=== PATIENT | male | born 1940 | race Caucasian/White ===

== ENCOUNTER → 2017-09-22 | Outpatient (REF) | payer MEDICARE ==
[~2017-09-22] MED LIST: ASPI81TA85 PO; CLOP75TA2 PO; LISI-538 PO; METO1TAB32 PO; OMEP40CA2 PO; SIMV40TA2 PO
[2017-09-22 19:03] LABS: FOLATE 18.2 NG/ML
== END ==
LOC: M LAB REF 17:25
PROVIDERS: ATTEND Internal Medicine
DX: M79.1 Myalgia (principal)

== ENCOUNTER → 2020-04-13 | Outpatient (REF) | payer MEDICARE ==
[~2020-04-13] MED LIST changes: -ASPI81TA85 PO; +ASPI81TA86 PO; +ATOR40TA75 PO; +LIPI20TA PO; -OMEP40CA2 PO; +OMEP40CA97 PO; -SIMV40TA2 PO; +SIMV40TA20 PO
[2020-04-13 13:35] LABS: TOTAL PROTEIN 7.7 GM/DL (6.4-8.2)
[2020-04-13 13:46] LABS: VITAMIN B12 LEVEL 549 PG/ML
[2020-04-13 13:47] LABS: FOLATE > 24.0 NG/ML
[2020-04-17 16:06] LABS: CERULOPLASMIN 23.3 mg/dL (16.0-31.0); VITAMIN B1 LEVEL WHOLE BLOOD 168.6 nmol/L (66.5-200.0); VITAMIN B6,PYRIDOXAL PHOSPHATE 17.1 ug/L (5.3-46.7); VITAMIN E(ALPHA TOCOPHEROL) 13.5 mg/L (9.0-29.0); VITAMIN E(GAMMA TOCOPHEROL) 2.6 mg/L (0.5-4.9)
[2020-04-18 16:27] LABS: ALBUMIN 4.52 GM/DL (3.29-5.55); ALBUMIN % 58.7 % (55.8-66.1); ALPHA-1-GLOBULINS 0.31 GM/DL (0.17-0.41); ALPHA-2-GLOBULINS 0.82 GM/DL (0.42-0.99); ALPHA-2-GLOBULINS % 10.6 % (7.1-11.8); BETA-1-GLOBULINS 0.52 GM/DL (0.28-0.60); BETA-1-GLOBULINS % 6.7 % (4.7-7.2); BETA-2-GLOBULINS 0.45 GM/DL (0.19-0.55); BETA-2-GLOBULINS % 5.9 % (3.2-6.5); GAMMA GLOBULIN % 14.1 % (11.1-18.8); GAMMA GLOBULINS 1.09 GM/DL (0.65-1.58)
== END ==
LOC: M LAB REF 11:58
PROVIDERS: ATTEND Internal Medicine
DX: E83.01 Wilson's disease (principal); D51.9 Vitamin B12 deficiency anemia, unspecified

== ENCOUNTER → 2020-09-08 | Outpatient (CLI) | payer SELFPAY | LOC: M LABSMTC 11:53 | PROVIDERS: ATTEND Pediatrics | DX: Z20.828 Contact with and (suspected) exposure to other viral communicable diseases (principal) ==

== ENCOUNTER → 2022-11-28 | Outpatient (CLI) | payer OTHER ==
[~2022-11-28] MED LIST changes: -LISI-538 PO; +LISI20TA33 PO; +OMEP40CA4 PO; -OMEP40CA97 PO
[2022-11-28 12:52] LABS: RHEUMATOID FACTOR QUANT < 3.5 IU/ML (<14)
[2022-12-05 12:08] LABS: ANCA-ATYPICAL <1:20 titer (Neg:<1:20); ANTI DS-DNA AB Negative (Negative); ANTINUCLEAR ANTIBODIES DIRECT Negative (Negative); ASPERGILLUS FUMIGATUS AB Negative (Negative); AUREOBASIDIUM PULLULANS Negative (Negative); CYCLIC CITRULLINATED PEPTIDE 9 units (0-19); CYTOPLASMIC NEUTROP AB ANCA-C <1:20 titer (Neg:<1:20); MICROPOLYSPORA FAENI AB Negative (Negative); PERINUCLEAR AB ANCA-P <1:20 titer (Neg:<1:20); PIGEON SERUM AB Negative (Negative); RNP ANTIBODIES 0.2 AI (0.0-0.9); SJOGREN'S ANTI SS-A <0.2 AI (0.0-0.9); SJOGREN'S ANTI SS-B <0.2 AI (0.0-0.9); SMITH ANTIBODIES <0.2 AI (0.0-0.9); THERMOACTINOMYCES SACCHARI Negative (Negative); THERMOACTINOMYCES VULGARIS Negative (Negative)
== END ==
LOC: M LAB 11:37
PROVIDERS: ATTEND Internal Medicine Pulmonary Disease
DX: J84.10 Pulmonary fibrosis, unspecified (principal)

== ENCOUNTER → 2022-12-23 | Outpatient (CLI) | payer OTHER | LOC: M RAD 07:47 | PROVIDERS: ATTEND Internal Medicine Pulmonary Disease | DX: J84.10 Pulmonary fibrosis, unspecified (principal); I25.9 Chronic ischemic heart disease, unspecified ==

== ENCOUNTER → 2023-01-09 | Outpatient (CLI) | payer OTHER | LOC: M CARPUL 07:57 | PROVIDERS: ATTEND Internal Medicine Pulmonary Disease | DX: J84.10 Pulmonary fibrosis, unspecified (principal) ==

== ENCOUNTER 2023-01-20 13:50 | Emergency (ER) | payer OTHER ==
[~2023-01-20] VITALS: Ht 177.8 cm; Wt 82.0 kg
[2023-01-20] MEDS ORDERED: ATOR80TA59 (14:12)
[2023-01-20] MEDS ORDERED: EZET10TA21 (14:12)
[2023-01-20] MEDS ORDERED: KETOROLAC 60MG 2ML VIAL IM ONE (15:15)
[2023-01-20] MEDS ORDERED: PRED20TA PO (16:59)
[2023-01-20] MEDS ORDERED: BACL10TA2 PO (16:59)
[2023-01-20] MEDS ORDERED: LIDO5DIS41 TD (16:59)
[2023-01-20 17:07] VITALS: BP 134/76
== END 2023-01-20 17:08 | disposition home or self-care (01) ==
LOC: M ED 13:50
DX: M51.16 Intervertebral disc disorders with radiculopathy, lumbar region (principal); I25.2 Old myocardial infarction; G47.33 Obstructive sleep apnea (adult) (pediatric); J84.10 Pulmonary fibrosis, unspecified; K21.9 Gastro-esophageal reflux disease without esophagitis; Z79.899 Other long term (current) drug therapy
CPT/HCPCS: 72131; 73502; 80047; 93971; 96372; 99283; J1885

== ENCOUNTER → 2023-02-21 | Outpatient (CLI) | payer OTHER ==
[~2023-02-21] MED LIST changes: +ATOR80TA59; +BACL10TA2 PO; +EZET10TA21; +LIDO5DIS41 TD; +PRED20TA PO
[2023-02-21 12:07] LABS: BILIRUBIN,DIRECT 0.2 MG/DL (<0.4); BILIRUBIN,TOTAL 0.6 MG/DL (0.3-1.2); TOTAL PROTEIN 6.9 G/DL (5.7-8.2)
== END ==
LOC: M LAB 11:09
PROVIDERS: ATTEND Internal Medicine Pulmonary Disease
DX: J84.10 Pulmonary fibrosis, unspecified (principal)

== ENCOUNTER 2023-04-10 09:58 | Inpatient (IN) | payer OTHER ==
[~2023-04-10] VITALS: Ht 177.8 cm; Wt 78.8 kg
[~2023-04-10 09:58] MED LIST changes: -ATOR80TA59; +ATOR80TA59 PO; -EZET10TA21; +EZET10TA21 PO
[2023-04-10 11:53] LABS: VENOUS BASE EXCESS -15.1 (-2.0-2.0); VENOUS HCO3 13.6 MMOL/L (23.0-27.0); VENOUS PARTIAL PRESSURE CO2 41.9 mmHg (38.0-50.0); VENOUS PARTIAL PRESSURE O2 46.3 mmHg (30.0-50.0); VENOUS TOTAL CO2 14.9 MMOL/L (24.0-28.0)
[2023-04-10 11:56] LABS: BASO # 0.2 10^3/uL (0.0-0.2); BASO % 0.7 % (0.0-1.0); EOS # 0.6 10^3/uL (0.0-0.5); EOS % 2.9 % (0.0-3.0); HEMATOCRIT 47.7 % (42.0-52.0); HEMOGLOBIN 16.2 g/dl (13.5-17.5); LYMPH # 1.9 10^3/uL (1.5-5.0); LYMPH % 9.2 % (24.0-44.0); MEAN CORPUSCULAR HEMOGLOBIN 29.9 pg (27.0-33.0); MONO % 8.7 % (2.0-8.0); NEUTROPHILS # 16.5 10^3/uL (1.5-8.5); PLATELET COUNT, AUTOMATED 321 10^3/uL (150-450); RED BLOOD COUNT 5.42 10^6/uL (4.30-6.10); WHITE BLOOD COUNT 21.2 10^3/uL (4.0-10.0)
[2023-04-10] MEDS ORDERED: NS 1,000 ML IV ONE (12:05)
[2023-04-10 12:20] LABS: ALBUMIN 4.2 G/DL (3.2-5.2); BILIRUBIN,DIRECT 0.2 MG/DL (<0.4); BILIRUBIN,TOTAL 0.5 MG/DL (0.3-1.2); CALCIUM LEVEL 9.8 MG/DL (8.3-10.6); CREATININE FOR GFR 5.62 MG/DL (0.70-1.30); GLOMERULAR FILTRATION RATE 10.4 (>35); POTASSIUM SERUM 5.7 MMOL/L (3.5-5.1); TOTAL PROTEIN 7.5 G/DL (5.7-8.2)
[2023-04-10 12:21] LABS: CK-MB VALUE MASS 2.6 NG/ML (<3.6)
[2023-04-10 12:22] LABS: THYROID STIMULATING HORMONE 1.086 uIU/ML (0.55-4.78); THYROXINE (T4) 11.5 UG/DL (4.5-10.9)
[2023-04-10 12:26] LABS: MB/CK RELATIVE INDEX 2.95 (< OR =4)
[2023-04-10 12:29] LABS: MONO # 1.9 10^3/uL (0.0-0.8)
[2023-04-10] MEDS ORDERED: NS IV ONE (12:35)
[2023-04-10] MEDS ORDERED: cefTRIAXone SOD 2 GM in D5W MINI-BAG PLUS 50 ML IV ONE (12:35)
[2023-04-10 12:37] LABS: INR 0.94; PROTHROMBIN TIME 12.8 SECONDS (12.5-14.5)
[2023-04-10 12:38] LABS: PARTIAL THROMBOPLASTIN TIME 29.1 SECONDS (24.8-34.2)
[2023-04-10 12:40] LABS: D-DIMER QUANT 992.16 ng/ml (<500)
[2023-04-10 12:41] LABS: ABG BASE EXCESS -12.9 (-2.0-2.0); ABG HCO3 13.3 MMOL/L (22.0-26.0); ABG O2 SATURATION 95.6 % (95.0-99.0); ABG PARTIAL PRESSURE CO2 32.5 mmHg (35.0-45.0); ABG PARTIAL PRESSURE O2 83.6 mmHg (75.0-100.0); ABG STANDARD HCO3 14.7 MMOL/L. (22.0-26.0); ABG TOTAL CO2 14.3 MMOL/L (23.0-31.0)
[2023-04-10 12:49] LABS: ABG pH (ARTERIAL) 7.231 UNITS (7.350-7.450)
[2023-04-10 13:51] LABS: C REACTIVE PROTEIN QUANTITATIV 0.6 MG/DL (<1.0); CK-MB VALUE MASS 2.1 NG/ML (<3.6)
[2023-04-10 14:04] LABS: PROCALCITONIN 0.55 ng/ml
[2023-04-10 14:07] LABS: MB/CK RELATIVE INDEX 2.41 (< OR =4)
[2023-04-10 14:31] LABS: APPEARANCE, URINE HAZY (CLEAR); BACTERIA, URINE AUTO NEGATIVE (NEGATIVE); BILIRUBIN, URINE AUTO NEGATIVE (NEGATIVE); BLOOD, URINE BLOOD NEGATIVE (NEGATIVE); COLOR, URINE YELLOW (YELLOW); GLUCOSE, URINE (UA) AUTO NEGATIVE (NEGATIVE); KETONE, URINE AUTO NEGATIVE (NEGATIVE); LEUKOCYTE ESTERASE, URINE AUTO NEGATIVE (NEGATIVE); MUCUS, URINE SMALL (NEGATIVE); NITRITE, URINE AUTO NEGATIVE (NEGATIVE); PROTEIN, URINE AUTO NEGATIVE (NEGATIVE); RBC, URINE AUTO 1 /HPF (0-3); SPECIFIC GRAVITY URINE AUTO 1.011 (1.002-1.035); SQUAMOUS EPITHELIAL CELL UR AU 0 /HPF (0-6); UROBILINOGEN, URINE AUTO 0.2 mg/dL (0.0-2.0); WBC, URINE AUTO 1 /HPF (0-3)
[2023-04-10] MEDS ORDERED: MED REC IN PROGRESS XX SCH (15:25)
[2023-04-10 16:00] LABS: CK-MB VALUE MASS 1.9 NG/ML (<3.6)
[2023-04-10 16:13] LABS: PROCALCITONIN 0.34 ng/ml
[2023-04-10 16:16] LABS: MB/CK RELATIVE INDEX 2.31 (< OR =4)
[2023-04-10 17:32] LABS: CALCIUM LEVEL 8.7 MG/DL (8.3-10.6); CREATININE FOR GFR 4.58 MG/DL (0.70-1.30); GLOMERULAR FILTRATION RATE 13.1 (>35); POTASSIUM SERUM 5.6 MMOL/L (3.5-5.1)
[2023-04-10] MEDS: SODIUM BICARBONATE 150 MEQ in D5W 1,000 ML IV SCH (18:31)
[2023-04-10 18:33] VITALS: BP 103/59; TEMP 97; O2SAT 95
[2023-04-10] MEDS ORDERED: OFEV1CAP2 PO (19:39)
[2023-04-10] MEDS ORDERED: TIZA10TA PO (19:39)
[2023-04-10] MEDS ORDERED: MELO15TA28 PO (19:39)
[2023-04-10] MEDS ORDERED: HOME MED LIST COMPLETE! XX SCH (19:45)
[2023-04-10 20:00] VITALS: BP 112/55; TEMP 96.2; O2SAT 99
[2023-04-11] VITALS (8 sets, daily range): BP systolic 84–125; BP diastolic 50–80; TEMP 97.1–98.9; O2SAT 93–98
[2023-04-11] MEDS: SODIUM BICARBONATE 150 MEQ in D5W 1,000 ML IV SCH (05:34)
[2023-04-11 06:12] LABS: BASO # 0.1 10^3/uL (0.0-0.2); BASO % 0.7 % (0.0-1.0); EOS # 0.9 10^3/uL (0.0-0.5); EOS % 7.8 % (0.0-3.0); HEMATOCRIT 40.8 % (42.0-52.0); LYMPH # 2.2 10^3/uL (1.5-5.0); LYMPH % 18.1 % (24.0-44.0); MEAN CORPUSCULAR HGB CONC 34.6 g/dl (32.0-36.5); MEAN CORPUSCULAR VOLUME 86.8 fl (80.0-96.0); MONO # 1.2 10^3/uL (0.0-0.8); NEUTROPHILS # 7.5 10^3/uL (1.5-8.5); NEUTROPHILS % 63.1 % (36.0-66.0); PLATELET COUNT, AUTOMATED 259 10^3/uL (150-450); WHITE BLOOD COUNT 11.9 10^3/uL (4.0-10.0)
[2023-04-11 06:35] LABS: CREATININE FOR GFR 2.14 MG/DL (0.70-1.30); GLOMERULAR FILTRATION RATE 31.6 (>35); POTASSIUM SERUM 4.6 MMOL/L (3.5-5.1)
[2023-04-11 06:37] LABS: HEMOGLOBIN 14.1 g/dl (13.5-17.5)
[2023-04-11] MEDS ORDERED: NS 1,000 ML IV ONE (13:40)
[2023-04-11] MEDS: NS 1,000 ML IV SCH (14:35)
[2023-04-11] MEDS ORDERED: EZETIMIBE 10MG TABLET (ZETIA) PO SCH (21:00)
[2023-04-11] MEDS ORDERED: ATORVASTATIN 20 MG TAB PO SCH (21:00)
[2023-04-12] MEDS: NS 1,000 ML IV SCH (02:00)
[2023-04-12 06:00] VITALS: BP 106/57; TEMP 97.7; O2SAT 94
[2023-04-12 07:07] LABS: BASO # 0.1 10^3/uL (0.0-0.2); BASO % 0.7 % (0.0-1.0); EOS # 1.1 10^3/uL (0.0-0.5); EOS % 10.9 % (0.0-3.0); HEMATOCRIT 36.8 % (42.0-52.0); HEMOGLOBIN 12.7 g/dl (13.5-17.5); LYMPH # 2.1 10^3/uL (1.5-5.0); LYMPH % 20.9 % (24.0-44.0); MEAN CORPUSCULAR HGB CONC 34.5 g/dl (32.0-36.5); MEAN CORPUSCULAR VOLUME 86.8 fl (80.0-96.0); MONO % 10.3 % (2.0-8.0); NEUTROPHILS # 5.6 10^3/uL (1.5-8.5); PLATELET COUNT, AUTOMATED 220 10^3/uL (150-450); RED BLOOD COUNT 4.24 10^6/uL (4.30-6.10); WHITE BLOOD COUNT 9.8 10^3/uL (4.0-10.0)
[2023-04-12 07:33] LABS: BLOOD UREA NITROGEN 24 MG/DL (9-23); CALCIUM LEVEL 8.3 MG/DL (8.3-10.6); CARBON DIOXIDE LEVEL 27 MMOL/L (20-31); CHLORIDE LEVEL 110 MMOL/L (98-107); CREATININE FOR GFR 0.85 MG/DL (0.70-1.30); GLOMERULAR FILTRATION RATE > 60.0 (>35); GLUCOSE, FASTING 98 MG/DL (74-106); POTASSIUM SERUM 4.5 MMOL/L (3.5-5.1); SODIUM LEVEL 142 MMOL/L (136-145)
[2023-04-12] MEDS ORDERED: ACET-897 PO (10:04)
== END 2023-04-12 12:03 | disposition home or self-care (01) | DRG 683 ==
LOC: M ED 09:58 → M ED INP 14:40 → ENRESERV 16:20 → M PCU 17:52 → M MSPAV 04-11 17:03
PROVIDERS: ADMIT Internal Medicine Nephrology; ATTEND Internal Medicine Nephrology
DX: N17.9 Acute kidney failure, unspecified (principal); E87.20 Acidosis, unspecified; J96.11 Chronic respiratory failure with hypoxia; R65.10 Systemic inflammatory response syndrome (SIRS) of non-infectious origin without acute organ dysfunction; E87.1 Hypo-osmolality and hyponatremia; J84.112 Idiopathic pulmonary fibrosis; E87.5 Hyperkalemia; J43.9 Emphysema, unspecified; I10 Essential (primary) hypertension; D64.9 Anemia, unspecified; R19.7 Diarrhea, unspecified; E86.0 Dehydration; I25.10 Atherosclerotic heart disease of native coronary artery without angina pectoris; K44.9 Diaphragmatic hernia without obstruction or gangrene; E78.5 Hyperlipidemia, unspecified; K27.9 Peptic ulcer, site unspecified, unspecified as acute or chronic, without hemorrhage or perforation; G47.33 Obstructive sleep apnea (adult) (pediatric); M54.9 Dorsalgia, unspecified; G89.29 Other chronic pain; Z99.81 Dependence on supplemental oxygen; Z95.5 Presence of coronary angioplasty implant and graft; Z20.822 Contact with and (suspected) exposure to COVID-19; Z79.899 Other long term (current) drug therapy; I25.2 Old myocardial infarction

== ENCOUNTER → 2023-05-13 | Outpatient (CLI) | payer OTHER ==
[~2023-05-13] MED LIST changes: +ACET-897 PO; +MELO15TA28 PO; +OFEV1CAP2 PO; +TIZA10TA PO
[2023-05-13 12:25] LABS: ALBUMIN 3.7 G/DL (3.2-5.2); BILIRUBIN,DIRECT 0.2 MG/DL (<0.4); BILIRUBIN,TOTAL 0.6 MG/DL (0.3-1.2)
== END ==
LOC: M LAB 11:30
PROVIDERS: ATTEND Internal Medicine Pulmonary Disease
DX: J84.10 Pulmonary fibrosis, unspecified (principal)